=== PATIENT | female | born 1975 | race Caucasian/White ===

== ENCOUNTER 2018-02-10 13:06 | Emergency (ER) | payer OTHER ==
[2018-02-10 13:12] VITALS: BP 141/79; PULSE 61; TEMP 98.3; BMI 29.2
--- NOTE | 2018-02-10 13:26 | PDOC ---
History of Present Illness - General Chief Complaint: Rash Stated Complaint: RASH Time Seen by Provider: 02/10/18 13:16 History Source: Patient Exam Limitations: No Limitations - History of Present Illness Initial Comments: CHIEF COMPLAINT: 42 y/o female with rash to left hip x 1 week. 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 It was blisters first and have scabbed over. However, the skin towards her abdomen has started to itch and feel painful. She never had the chicken pox and was never immunized for chicken pox. Vital signs on arrival are within normal limits. REVIEW OF SYSTEMS: GENERAL/CONSTITUTIONAL: No fever/chills. MUSCULOSKELETAL: No joint or muscle swelling or pain. No neck or back pain. SKIN: +painful and itchy rash to left hip NEUROLOGIC: No headache, vertigo, loss of consciousness, or loss of sensation. PHYSICAL EXAM: GENERAL: The patient is awake, alert, and fully oriented, in no acute distress. EXTREMITIES: Normal range of motion, no edema. NEUROLOGICAL: Normal speech, normal gait. CN II-XII grossly intact. SKIN: Small crusted over blisters on erythematous bases along dermatome of left hip. Past History - Past Medical History Allergies/Adverse Reactions: Allergies Allergy/AdvReac Type Severity Reaction Status Date / Time No Known Allergies Allergy Verified 02/10/18 13:12 Home Medications: Ambulatory Orders Valacyclovir HCl [Valtrex -] 1,000 mg PO TID #21 tablet 02/10/18 COPD: No - Suicide/Smoking/Psychosocial Hx Smoking History: Never smoked *Physical Exam - Vital Signs Last Vital Signs Temp Pulse Resp BP Pulse Ox 98.3 F 61 18 141/79 98 02/10/18 13:10 02/10/18 13:10 02/10/18 13:10 02/10/18 13:10 02/10/18 13:10 Medical Decision Making - Medical Decision Making A/P: 42 y/o female with shingles. Will send rx for valtrex. Instructed her to keep it covered. The patient verbalizes understanding of all instructions, has no further questions and is awaiting discharge. *DC/Admit/Observation/Transfer Diagnosis at time of Disposition: Shingles Qualifiers: Herpes zoster complications: without complications Qualified Code(s): B02.9 - Zoster without complications - Discharge Dispostion Disposition: HOME Condition at time of disposition: Good - Prescriptions Prescriptions: Valacyclovir HCl [Valtrex -] 1,000 mg PO TID #21 tablet - Referrals Referrals: Mina Vogt MD [Primary Care Provider] - - Patient Instructions Printed Discharge Instructions: DI for Shingles Additional Instructions: Discharge Instructions: -You have a rash caused by shingles -Keep the rash covered -A prescription for medication has been sent to your pharmacy -Please take Ibuprofen for pain if needed Print Language: SWAZI - Post Discharge Activity
== END 2018-02-10 13:50 | disposition home or self-care (01) ==
LOC: JERFT 13:06
DX: B02.9 Zoster without complications (principal)
CPT/HCPCS: 99281-25

== ENCOUNTER 2020-05-22 21:20 | Emergency (ER) | payer OTHER ==
[2020-05-22 21:33] VITALS: BP 151/92; PULSE 80; TEMP 97; BMI 29.2
[2020-05-22] MEDS ORDERED: ACETAMINOPHEN 325 MG TABLET (FP) PO ONE (22:08)
[2020-05-22] MEDS ORDERED: CYCLOBENZAPRINE HCL 10 MG TABLET (FP) PO ONE (22:09)
[2020-05-22] MEDS ORDERED: LIDOCAINE 5% TOPICAL PATCH TP ONE (22:09)
== END 2020-05-22 22:33 | disposition home or self-care (01) ==
LOC: JER 21:20
DX: S16.1XXA Strain of muscle, fascia and tendon at neck level, initial encounter (principal)
CPT/HCPCS: 99284-25